=== PATIENT | male | born 1990 | race Caucasian/White ===

== ENCOUNTER 2017-02-21 21:17 | Emergency (ER) | payer OTHER ==
[2017-02-21 21:32] VITALS: BP 140/83; PULSE 85; RESP 18; TEMP 99; O2SAT 99
--- NOTE | 2017-02-21 21:41 | EDPHY ---
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 He was going down a set of stairs when he tripped, falling down the last for 5 stairs. He landed on it abducted and extended left arm, striking the platform at the bottom of the stairs. No head injury. No loss of conscious. No chest or back pain. No abdominal injury or pain. Complains of pain left shoulder that is [id number]. At rest it is minimal. When he abducts the arm or extend the arm, he has moderate pain over the lateral joint line. No numbness or tingling. No pain in the ipsilateral elbow, forearm, wrist or no other associated complaints or modifying factors. PRIOR ORTHO INJURIES: None ESTABLISHED ORTHOPEDIST: None REVIEW OF SYSTEMS: Ten systems reviewed and are negative unless otherwise noted in the HPI EXAMINATION General Appearance: Alert, no distress Cardiovascular: Pulses normal throughout. Symmetric radial pulses are 2+. Brisk cap refill Neurological: A&O, sensory symmetric, strength symmetric Skin: Warm and dry, no rash. No lacerations or abrasions. Extremities: Mild tenderness of the left shoulder joint, laterally. No crepitus. No deformity. No apprehension. Range of motion is intact. Mild pain with Yergason and speed. Negative empty can. Neurovascular intact distal to the injury. Psychiatric: Mood and affect normal DIFFERENTIAL DIAGNOSES: Including but not limited to sprain, strain, contusion, rotator cuff injury, slap tear, fracture, dislocation MDM: 9:30 p.m. Left shoulder pain status post fall. No laceration. He is neuro intact. X- ray is pending. 10:08 p.m. X-ray as interpreted me reveals no acute fracture dislocation. He is neurovascular intact. We discussed discharge from the ER with normal worker's compensation follow-up. He is to follow up with Orthopedics if he does not resolved the next 7-10 days. He is comfortable with this plan. 10:20 p.m. X-ray is read as no acute fracture dislocation by radiologist. He is discharged home stable condition. ED Precautions: Worsening pain. Erythema, edema, cyanosis, pallor, paresthesia or anesthesia. SUPERVISION: This patient was independently evaluated without direct examination by the attending physician. Case was discussed with attending physician. Source: Patient Exam Limitations: No limitations - Personal History Current Tetanus/Diphtheria Vaccine: Yes Current Tetanus Diphtheria and Acellular Pertussis (TDAP): Yes - Medical/Surgical History Hx Asthma: No Hx Chronic Respiratory Disease: No Hx Diabetes: No Hx Cardiac Disease: No Hx Renal Disease: No Hx Cirrhosis: No Hx Alcoholism: No Hx HIV/AIDS: No Hx Splenectomy or Spleen Trauma: No Other PMH: l wrist surgery. adenoids. bone graft - Social History Smoking Status: Never smoked Constitutional: Initial Vital Signs Temperature (C) 99.0 F 02/21/17 21:20 Heart Rate 85 02/21/17 21:20 Respiratory Rate 18 02/21/17 21:20 Blood Pressure 140/83 H 02/21/17 21:20 O2 Sat (%) 99 02/21/17 21:20 O2 Delivery Mode Room Air Allergies/Adverse Reactions: clarithromycin [From Biaxin] Allergy (Verified 02/21/17 21:32) Home Medications: Medication Instructions Recorded NK [No Known Home Meds] 02/21/17 Medical Decision Making - Diagnostics Imaging Results: Imaging Impressions Shoulder X-Ray 02/21/17 21:30 Impression: No definite fracture of the left shoulder. Departure - Departure Disposition: Home, Routine, Self-Care Clinical Impression: Shoulder sprain Shoulder injury Qualifiers: Encounter type: initial encounter Laterality: left Qualified Code(s): S49.92XA - Unspecified injury of left shoulder and upper arm, initial encounter Fall Qualifiers: Encounter type: initial encounter Qualified Code(s): W19.XXXA - Unspecified fall, initial encounter Condition: Good Instructions: Shoulder Sprain (ED) Additional Instructions: Weightbearing as tolerated. Follow up with Orthopedics for definitive care. Follow up with worker's compensation Clinic as instructed Referrals: [facility]LL[facility] [Other] - As per Instructions [facility] [Clinic] - As per Instructions Michelle Goldman MD [Medical Doctor] - As per Instructions
== END 2017-02-21 22:10 | disposition home or self-care (01) ==
DX: S43.402A Unspecified sprain of left shoulder joint, initial encounter (principal); W01.0XXA Fall on same level from slipping, tripping and stumbling without subsequent striking against object, initial encounter

== ENCOUNTER 2017-02-27 22:17 | Emergency (ER) | payer OTHER ==
[2017-02-27 22:24] VITALS: RESP 16; TEMP 98.4; O2SAT 96
--- NOTE | 2017-02-27 22:25 | EDPHY ---
H & P Stated Complaint: cough/cold symptoms, lost voice HPI/ROS: CHIEF COMPLAINT: Cough, fever HISTORY OF PRESENT ILLNESS: The patient is a 27 y/o male complaining of worsening productive cough and fever over the last week. 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 He complains of a productive cough with moderate phlegm, some hemoptysis, fever, mild dyspnea, and a few episodes of vomiting during coughing fits. He has been treating his symptoms with ibuprofen, Mucinex, DayQuil and NyQuil, and lozenges without relief. He has had difficulty sleeping and has eaten very little over the last few days. He denies associated no abdominal pain, diarrhea, dysuria, ear ache. He did receive a flu vaccination this season. He denies pertinent medical history. REVIEW OF SYSTEMS: A ten point review of systems was performed and is negative with the exception of the items mentioned in the HPI. Source: Patient Exam Limitations: No limitations - Personal History Current Tetanus/Diphtheria Vaccine: Yes - Medical/Surgical History PMH: Left wrist surgery. Hx Asthma: No Hx Chronic Respiratory Disease: No Hx Diabetes: No Hx Cardiac Disease: No Hx Renal Disease: No Hx Cirrhosis: No Hx Alcoholism: No Hx HIV/AIDS: No Hx Splenectomy or Spleen Trauma: No Other PMH: PSHx: l wrist surgery, adenoids, bone graft. 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 Lives in [place]. Nonsmoker. - Physical Exam Exam: General Appearance: Alert. Vital signs reviewed. Actively coughing. Eyes: Pupils equal and round, no conjunctival injection, no discharge. Anicteric. ENT, Mouth: Mucous membranes are moist, no oropharyngeal erythema or edema. Hoarse voice. Neck: No lymphadenopathy, supple. Respiratory: Lungs are clear to auscultation; no wheezes, rales, or rhonchi. Cardiovascular: Regular rate and rhythm; no murmur, rub, or gallop. Gastrointestinal: Abdomen is soft and nontender, no masses or organomegaly, bowel sounds normal. Skin: Warm and dry, no rashes on exposed skin, normal color. Back: Nontender to palpation over the thoracolumbar spine. No CVAT. Extremities: No lower extremity edema, no calf tenderness or swelling. Neurological: Alert and oriented. Moving all four extremities easily and equally. Psychiatric: Normal affect. Constitutional: Initial Vital Signs Temperature (C) 36.9 C 02/27/17 22:21 Heart Rate 80 02/27/17 22:21 Respiratory Rate 16 02/27/17 22:21 Blood Pressure 122/76 H 02/27/17 22:21 O2 Sat (%) 96 02/27/17 22:21 O2 Delivery Mode Room Air Allergies/Adverse Reactions: clarithromycin [From Biaxin] Allergy (Verified 02/21/17 21:32) Home Medications: Medication Instructions Recorded NK [No Known Home Meds] 02/21/17 Medical Decision Making - Diagnostics Imaging Results: Imaging Impressions Chest X-Ray 02/27/17 22:42 Impression: Normal. Imaging: I viewed and interpreted images myself ED Course/Re-evaluation: Chest x-ray ordered. Patient declined narcotic cough medication and flu swab (I do not recommend flu swab in this setting). 650mg PO Tylenol administered. Chest x-ray is negative/normal. I discussed findings with the patient. He will be discharged with standard viral syndrome care instructions. Return precautions given. He agrees with plan. He will continue with [id number] treatments for his symptoms. Differential Diagnosis: I considered a differential diagnosis including but not limited to pneumonia, bronchitis, reactive airway disease, viral syndrome, and influenza. - Data Points Medications Given: Discontinued Medications Acetaminophen (Tylenol) 650 mg PO EDNOW ONE Stop: 02/27/17 22:47 Last Admin: 02/27/17 23:02 Dose: 650 mg Departure - Departure Disposition: Home, Routine, Self-Care Clinical Impression: Cough Upper respiratory infection Qualifiers: URI type: unspecified URI Qualified Code(s): J06.9 - Acute upper respiratory infection, unspecified Condition: Good Instructions: Upper Respiratory Infection (ED), Acute Cough (ED) Additional Instructions: 1. Continue alternating Tylenol and ibuprofen for fever and pain over the next 3 -4 days. Be aware most versions of DayQuil and NyQuil contain Tylenol. Do not take more than 3000mg of Tylenol in a 24-hour period. 2. Follow up with your primary care provider for unimproved symptoms over the next week. Adult Pain & Fever Control: We recommend Acetaminophen (Tylenol) and Ibuprofen (Motrin,Advil) for pain and fever control. When fever is high or pain severe, both drugs can be used at the same time, but at different intervals. Please note the time differences. Your dose is: Acetaminophen 650mg every 4 to 6 hours Ibuprofen 600mg every 6-8 hours with food Note: do not take Acetaminophen with Hydrocodone (Vicodin, Lortab) or Oxycodone (Percocet). These medications also contain Acetaminophen. No more than 3000mg of Acetaminophen should be taken in 24 hours (for an adult). Referrals: Brianna Echavarria MD [[facility] Primary Care Provider] - As per Instructions Stand Alone Forms: Work Excuse Report Scribed for: Trang Vázquez Report Scribed by: Maty Henriquez Date of Report: 02/27/17 Time of Report: 22:26 Physician Review and Approval Statement: 02/27/17 22:25 Portions of this note were transcribed by the clinical specialist medical device. I, Dr. Trang Vázquez, personally performed the history, physical exam, and medical decision- making; and confirmed the accuracy of the information in the transcribed note.
[2017-02-27] MEDS ORDERED: ACETAMINOPHEN 325 MG TAB PO ONE (22:46)
[2017-02-27 23:24] VITALS: BP 118/75; PULSE 78
== END 2017-02-27 23:23 | disposition home or self-care (01) ==
DX: J06.9 Acute upper respiratory infection, unspecified (principal)

== ENCOUNTER 2018-01-16 23:35 | Emergency (ER) | payer OTHER ==
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
[2018-01-17 00:46] VITALS: BP 114/72
== END 2018-01-17 | disposition home or self-care (01) ==
DX: S05.01XA Injury of conjunctiva and corneal abrasion without foreign body, right eye, initial encounter (principal); Y08.89XA Assault by other specified means, initial encounter

== ENCOUNTER 2018-05-03 18:21 | Emergency (ER) | payer OTHER ==
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
[2018-05-03] MEDS ORDERED: predniSONE 20 MG TAB PO ONE (20:03)
[2018-05-03] MEDS ORDERED: ONDANSETRON DISINTEGRATING 4 MG TAB PO ONE (20:03)
[2018-05-03] MEDS ORDERED: CYCLOBENZAPRINE 10MG PREPACK#3 BTL TAKEHOME ONE (20:33)
[2018-05-03 21:02] VITALS: BP 123/77
== END 2018-05-03 21:00 | disposition home or self-care (01) ==
DX: M50.30 Other cervical disc degeneration, unspecified cervical region (principal)
CPT/HCPCS: J7512